=== PATIENT | female | born 1995 | race Caucasian/White ===

== ENCOUNTER 2018-03-26 14:15 | Outpatient (CLI) | payer BC ==
[2018-03-26] VITALS (17 sets, daily range): BP systolic 97–124; BP diastolic 61–87
== END 2018-03-26 23:59 | disposition home or self-care (01) ==
LOC: CARD DIAG 14:15
PROVIDERS: ATTEND Family Medicine
DX: I07.1 Rheumatic tricuspid insufficiency (principal); R55 Syncope and collapse
CPT/HCPCS: 93306; 93660